=== PATIENT | male | born 2000 | race Caucasian/White ===

== ENCOUNTER 2021-08-08 10:59 | Outpatient (CLI) | payer OTHER, SELFPAY | END 2021-08-08 23:59 | disposition short-term general hospital (02) | LOC: LABSPEC 11:00 | PROVIDERS: Referring Provider Physician Assistant; Visit Provider Physician Assistant | DX: Z11.52 Encounter for screening for COVID-19 (principal) | CPT/HCPCS: 87635; U0003; U0005 ==